=== PATIENT | female | born 1995 | race Caucasian/White ===

== ENCOUNTER 2017-11-16 10:42 | Emergency (ER) | payer OTHER ==
--- NOTE | 2017-11-16 11:02 | EDPHY ---
H & P Stated Complaint: r abd pain Time Seen by Provider: 11/16/17 11:01 HPI/ROS: HPI: This is a 22-year-old female who presents with Chief Complaint: Right-sided abdominal pain Location: Right lower quadrant Quality: Pain Duration: Since Thursday Signs and Symptoms: no fever, no nausea, no vomiting, no hematemesis, no blood in stool, no abdominal bloating, no diarrhea, no back pain, no urinary symptoms , no vaginal bleeding/discharge, no indigestion, no chest pain, no shortness of breath Timing: Acute, intermittent episodes Severity: [id number] Context: Patient reports that Thursday evening she had sudden onset of right lower quadrant pain that was sharp and nonradiating in nature. She reports that she was just resting when this occurred. Have sexual intercourse with her boyfriend on Thursday and had discomfort in the area. She reports that approximately 1-2 times per day she has a sharp episodes that her cramping in nature. She reports that she has a history ovarian cyst and this feels very similar. She called her primary care provider this morning to have follow-up in their concerned that it may be appendicitis so they sent her to the emergency room for further evaluation. Patient eating and drinking normally in her last meal was breakfast shake at around 8:30 a.m. IUD in placed in October. Patient was able to feel her IUD strings on Thursday. She denies any vaginal bleeding, vaginal discharge, nausea, vomiting, fever, urinary symptoms, history of kidney stones. Modifying Factors: None Comment: ROS: see HPI Constitutional: No fever, no chills, no weight loss Eyes: No blurred vision Respiratory: No shortness of breath, no cough Cardiovascular: No chest pain, no palpitations Gastrointestinal: No nausea, no vomiting, no diarrhea, no hematemesis, no blood in stool Genitourinary: No dysuria, no blood in urine Extremities: No myalgias, no edema Neurologic: No weakness, no numbness Skin: No rashes, no petechiae Hematologic: No bruising, no bleeding MEDICAL/SURGICAL/SOCIAL HISTORY: Medical history: irritated lung disease? Surgical history: [place] teeth Social history: Never smoked. Family history noncontributory. CONSTITUTIONAL: Nontoxic-appearing extremely polite and cooperative young adult white female, awake and alert, no obvious distress HEENT: Atraumatic and normocephalic, PERRL, EOMI. Nares patent; no rhinorrhea; no nasal mucosal edema. Tympanic membranes clear. Oropharynx clear, no exudate and moist pink mucosa. Airway patent. No lymphadenopathy. No meningismus. Cardiovascular: Normal S1/S2, regular rate, regular rhythm, without murmur rub or gallop. PULMONARY/CHEST: Symmetrical and nontender. Clear to auscultation bilaterally. Good air movement. No accessory muscle usage. ABDOMEN: Soft, nondistended, mild RLQ tenderness, no rebound, no guarding, no peritoneal signs, no masses or organomegaly. No CVAT. EXTREMITIES: 2/2 pulses, strength 5/5, no deformities, no clubbing, no cyanosis or edema. NEUROLOGICAL: no focal neuro deficits. GCS 15. SKIN: Warm and dry, no erythema. no rash. Good capillary refill. Source: Patient Exam Limitations: No limitations - Personal History LMP (Females 10-55): IUD In Place Current Tetanus Diphtheria and Acellular Pertussis (TDAP): Yes - Medical/Surgical History Hx Asthma: Yes Hx Chronic Respiratory Disease: No Hx Diabetes: No Hx Cardiac Disease: No Hx Renal Disease: No Hx Cirrhosis: No Hx Alcoholism: No Hx HIV/AIDS: No Hx Splenectomy or Spleen Trauma: No Other PMH: medical Irritated Lung disease. surgery wisdom teeth - Social History Smoking Status: Never smoked Constitutional: Initial Vital Signs Temperature (C) 36.9 C 11/16/17 10:47 Heart Rate 70 11/16/17 10:47 Respiratory Rate 16 11/16/17 10:47 Blood Pressure 111/73 11/16/17 10:47 O2 Sat (%) 98 11/16/17 10:47 O2 Delivery Mode Room Air Allergies/Adverse Reactions: minocycline Allergy (Verified 11/16/17 10:46) Home Medications: Medication Instructions Recorded Cyclobenzaprine [Flexeril 10 MG 10 mg PO Q8 PRN #15 tab 11/16/17 (*)] MIRENA 11/16/17 Tretinoin 0.05% Emollient Crm 11/16/17 Medical Decision Making - Diagnostics Imaging Results: Imaging Impressions Abdomen Ultrasound 11/16/17 11:08 Impression: 1. The [id number] appendix appears normal, and is compressible. The proximal retrocecal portion of the appendix is not visualized secondary to overlying bowel gas. 2. Small amount of free fluid in the right adnexal region. If there is further clinical concern regarding the patient's right lower quadrant pain, contrast-enhanced CT imaging could be considered. Findings were discussed with Lisa Samuel PA-C at 12:35, on 11/16/2017. Pelvic/Renal Ultrasound 11/16/17 11:08 Impression: 1. There is a 6.1 cm simple-appearing right ovarian cyst, with no evidence of torsion. 2. Small amount of free fluid in the pelvis. 3. The IUD appears appropriate (with some limitation in evaluation of the left device arm because of uterine positioning). Findings were discussed with Lisa Samuel PA-C at 12:45, on 11/16/2017. ED Course/Re-evaluation: Labs, urinalysis, pelvic ultrasound, right lower quadrant ultrasound ordered Patient is currently without pain and drinking fluids without difficulty will not place an IV or give IV fluids or pain medications upon arrival. Vital signs reviewed and stable. No fever, no tachycardia. 1157: Labs reviewed. No signs of KATHLEEN/elevated LFTs/electrolyte imbalance/ pancreatitis/. Urinalysis shows 1+ blood and 5-10 RBCs, no signs of infection 1210: Called by lab that blood sample for CBC was hemolyzed. 1237: Called by radiologist, Dr. Rivera, who advised that abdominal ultrasound is able to visualize appendix measuring at 4-4.9 mm and is compressible. No signs of appendicitis. 1250: Called by radiologist who advised that pelvic ultrasound shows a 6 cm right ovarian simple cyst with no evidence of torsion there is mild free fluid. No signs of hemorrhage/Ectopic . Uterus is retroflexed with IUD in place. 1255: Shows stable H&H and normal platelet count. Reassessed patient who reports that she has no pain currently. Abdomen is soft and nontender. She is requesting a prescription for Flexeril as ibuprofen is not helping. Will follow up with her OBGYN. This patient was seen under the supervision of my secondary supervising physician. I evaluated care for this patient independently. Discussed this patient with Dr. Butterfield who did not see the patient. Differential Diagnosis: Abdominal pain in a female including but not limited to ovarian cyst, pelvic inflammatory disease, ovarian torsion, urinary tract infection, and appendicitis. - Data Points Laboratory Results: Laboratory Results 11/16/17 12:19 11/16/17 11:20 11/16/17 11/16/17 11/16/17 12:19 11:26 11:20 WBC 10.12 10^3/uL H 10^3/uL (3.80-9.50) RBC 4.76 10^6/uL 10^6/uL (4.18-5.33) Hgb 14.9 g/dL g/dL (12.6-16.3) Hct 42.3 % % (38.0-47.0) MCV 88.9 fL fL (81.5-99.8) MCH 31.3 pg pg (27.9-34.1) MCHC 35.2 g/dL g/dL (32.4-36.7) RDW 11.6 % % (11.5-15.2) Plt Count 181 10^3/uL 10^3/uL (150-400) MPV 10.9 fL fL (8.7-11.7) Neut % (Auto) 71.4 % % (39.3-74.2) Lymph % (Auto) 20.3 % % (15.0-45.0) [place] % (Auto) 6.3 % % (4.5-13.0) Eos % (Auto) 1.4 % % (0.6-7.6) Baso % (Auto) 0.4 % % (0.3-1.7) Nucleat RBC Rel Count 0.0 % % (0.0-0.2) Absolute Neuts (auto) 7.23 10^3/uL H 10^3/uL (1.70-6.50) Absolute Lymphs (auto) 2.05 10^3/uL 10^3/uL (1.00-3.00) Absolute Monos (auto) 0.64 10^3/uL 10^3/uL (0.30-0.80) Absolute Eos (auto) 0.14 10^3/uL 10^3/uL (0.03-0.40) Absolute Basos (auto) 0.04 10^3/uL 10^3/uL (0.02-0.10) Absolute Nucleated RBC 0.00 10^3/uL 10^3/uL (0-0.01) Immature Gran % 0.2 % % (0.0-1.1) Immature Gran # 0.02 10^3/uL 10^3/uL (0.00-0.10) Sodium Potassium Chloride Carbon Dioxide Anion Gap BUN Creatinine Estimated GFR Glucose Calcium Total Bilirubin Conjugated Bilirubin Unconjugated Bilirubin AST ALT Alkaline Phosphatase Total Protein Albumin Lipase Beta HCG, Qual NEGATIVE Urine Color PALE YELLOW Urine Appearance CLEAR Urine pH 8.0 H (5.0-7.5) Ur Specific [place] 1.004 (1.002-1.030) Urine Protein NEGATIVE (NEGATIVE) Urine Ketones NEGATIVE (NEGATIVE) Urine Blood 1+ H (NEGATIVE) Urine Nitrate NEGATIVE (NEGATIVE) Urine Bilirubin NEGATIVE (NEGATIVE) Urine Urobilinogen NEGATIVE EU EU (0.2-1.0) Ur Leukocyte Esterase NEGATIVE (NEGATIVE) Urine RBC 5-10 /hpf H /hpf (0-3) Urine WBC 0-1 /hpf /hpf (0-3) Ur Epithelial Cells TRACE /lpf /lpf (NONE-1+) Urine Mucus TRACE /lpf /lpf (NONE-1+) Urine Glucose NEGATIVE (NEGATIVE) 11/16/17 11/16/17 11:20 11:20 WBC REJ RBC TNP Hgb TNP Hct TNP MCV TNP MCH TNP MCHC TNP RDW TNP Plt Count TNP MPV TNP Neut % (Auto) TNP Lymph % (Auto) TNP [place] % (Auto) TNP Eos % (Auto) TNP Baso % (Auto) TNP Nucleat RBC Rel Count TNP Absolute Neuts (auto) TNP Absolute Lymphs (auto) TNP Absolute Monos (auto) TNP Absolute Eos (auto) TNP Absolute Basos (auto) TNP Absolute Nucleated RBC TNP Immature Gran % TNP Immature Gran # TNP Sodium 140 mEq/L mEq/L (135-145) Potassium 4.0 mEq/L mEq/L (3.3-5.0) Chloride 104 mEq/L mEq/L (97-110) Carbon Dioxide 22 mEq/l mEq/l (22-31) Anion Gap 14 mEq/L mEq/L (8-16) BUN 11 mg/dL mg/dL (7-23) Creatinine 0.6 mg/dL mg/dL (0.6-1.0) Estimated GFR > 60 Glucose 89 mg/dL mg/dL (70-100) Calcium 9.9 mg/dL mg/dL (8.5-10.4) Total Bilirubin 0.5 mg/dL mg/dL (0.1-1.4) Conjugated Bilirubin 0.4 mg/dL mg/dL (0.0-0.5) Unconjugated Bilirubin 0.1 mg/dL mg/dL (0.0-1.1) AST 32 IU/L IU/L (14-46) ALT 48 IU/L IU/L (9-52) Alkaline Phosphatase 85 IU/L IU/L (38-126) Total Protein 7.1 g/dL g/dL (6.3-8.2) Albumin 4.1 g/dL g/dL (3.5-5.0) Lipase 101 IU/L IU/L (23-300) Beta HCG, Qual Urine Color Urine Appearance Urine pH Ur Specific [place] Urine Protein Urine Ketones Urine Blood Urine Nitrate Urine Bilirubin Urine Urobilinogen Ur Leukocyte Esterase Urine RBC Urine WBC Ur Epithelial Cells Urine Mucus Urine Glucose Departure - Departure Disposition: Home, Routine, Self-Care Clinical Impression: Right ovarian cyst Condition: Good Instructions: Ovarian Cyst (ED), Pelvic Rest (ED) Additional Instructions: Consume a minimum of 8-10 glasses of water or electrolyte fluid replacement drinks that include Gatorade, Powerade, Pedialyte. Take Tylenol 650 mg every 4 hours and/or Ibuprofen 600 mg every 8 hours with food as needed for pain. Take Flexeril every 8 hr as needed for muscle spasm. Please observe pelvic rest until all pain has resolved. Follow up with OBGYN in the next 1-2 weeks to discuss ovarian cyst management. Referrals: Rebeka Avelar MD [Primary Care Provider] - As per Instructions Prescriptions: Cyclobenzaprine [Flexeril 10 MG (*)] 10 mg PO Q8 PRN #15 tab PRN Reason: Spasms
[2017-11-16 12:51] LABS: PLATELET COUNT 181 10^3/uL (150-400)
[2017-11-16 13:06] VITALS: BP 110/86
== END 2017-11-16 13:06 | disposition home or self-care (01) ==
DX: N83.201 Unspecified ovarian cyst, right side (principal); J45.909 Unspecified asthma, uncomplicated